=== PATIENT | male | born 1950 | race Caucasian/White ===

== ENCOUNTER 2018-06-18 20:30 | Inpatient (IN) ==
[2018-06-18] MEDS ORDERED: FUROSEMIDE 40 MG/4 ML VIAL IV STA (21:24)
[2018-06-19] MEDS ORDERED: ALBUTEROL 2.5 MG/3 ML NEB RESP TX PRN (00:24)
[2018-06-19] MEDS ORDERED: ACETAMINOPHEN 325 MG TABLET PO PRN (00:24)
[2018-06-19] MEDS ORDERED: hydrOXYzine HCL 25 MG TABLET PO PRN (00:24)
[2018-06-19] MEDS ORDERED: DOCUSATE SODIUM 100 MG CAPSULE PO PRN (00:24)
[2018-06-19] MEDS ORDERED: ONDANSETRON 4 MG/2 ML VIAL IV PRN (00:24)
[2018-06-19] MEDS ORDERED: NON-FORMULARY MEDICATION (Albuterol Sulfate [Ventolin Hfa] 2 PUFF) INH PRN (00:24)
[2018-06-19] MEDS: cefTRIAXone 1,000 MG in SYRINGE 1 EACH IV SCH ×2 (00:55→01:28)
[2018-06-19] MEDS ORDERED: AZITHROMYCIN INJ 500 MG in SODIUM CHLORIDE 0.9% 250 ML IV SCH (01:00)
[2018-06-19] MEDS: ALBUTEROL/IPRATROPIUM 3 ML NEB RESP TX SCH ×4 (01:57→19:43)
[2018-06-19 04:35] LABS: Hematocrit 36.8 VOL% (42.0-52.0); Hemoglobin 11.8 GM/DL (14.0-18.0); Immature Granulocytes % 0.7 %; Immature Granulocytes Absolute 0.04 #; Lymphocytes # 0.3 10*3/uL (1.4-4.0); Mean Corpuscular HGB Conc 32.1 GM/DL (32-36); Mean Corpuscular Hemoglobin 32 PG (27-34); Mean Corpuscular Volume 100.5 FL (87-102); Mean Platelet Volume 12.8 FL (9.6-12.0); Monocytes # 0.3 10*3/uL (0.11-0.8); Neutrophils # 4.7 10*3/uL (1.4-7.4); Neutrophils % 88.3 % (38.7-73.9); Red Blood Count 3.66 MC/CUMM (3.8-5.5); White Blood Count 5.4 T/CUMM (4-12)
[2018-06-19 04:39] LABS: Platelet Count 39 T/CUMM (130-400)
[2018-06-19 05:04] LABS: Calcium 8.7 MG/DL (8.5-10.1); Osmolality,Calculated 274.4 MOS/KG (273-304); Risk Ratio 1.31; Thyroid Stimulating Hormone 0.145 uIU/ml (0.358-3.74); VLDL CHOLESTEROL 9.4 MG/DL
[2018-06-19 05:12] LABS: Hypochromasia 1+; Tear Drop Cells Slight
[2018-06-19 05:13] LABS: Microcytosis Slight; Platelet Estimate Decreased
[2018-06-19] MEDS ORDERED: IPRATROPIUM 500 MCG/2.5 ML NEB RESP TX SCH (07:00)
[2018-06-19 08:19] LABS: Albumin 3.1 G/DL (3.4-5.0); Bilirubin,Total 0.6 MG/DL (0.2-1.0); Calcium 8.9 MG/DL (8.5-10.1); Potassium 3.9 MMOL/L (3.5-5.1); Total Protein 7.2 G/DL (6.4-8.3)
[2018-06-19] MEDS: FUROSEMIDE 20 MG/2 ML VIAL IV SCH ×2 (08:52→16:16)
[2018-06-19] MEDS: FLUTICASONE/SALMETEROL 250-50 DISKUS 14 DOSE INH SCH ×2 (08:53→20:50)
[2018-06-19] MEDS: MONTELUKAST 10 MG TABLET PO SCH (08:53)
[2018-06-19] MEDS: FOLIC ACID 1 MG TABLET PO SCH (08:53)
[2018-06-19] MEDS: predniSONE 20 MG TABLET PO SCH (08:53)
[2018-06-19] MEDS ORDERED: ENOXAPARIN 40 MG/0.4 ML SYRINGE SUBCUT SCH (09:00)
[2018-06-19 14:46] LABS: Apearance,Urine CLEAR (Clear); Bilirubin,Urine Negative (Negative); Blood, Urine Negative (Negative); Glucose,Urine (UA) Negative (Negative); Ketones,Urine Negative (Negative); Mucus,Urine Occasional /LPF (Occasional); Nitrite,Urine Negative (Negative); Protein,Urine Negative; RBC,Urine 1 /HPF (0-4); Urine Color Straw (Yellow); Urine Specific Gravity 1.006 (1.001-1.035); Urine Urobilinogen < 2.0 EU/DL (0.2-1.0)
[2018-06-20] MEDS: ALBUTEROL/IPRATROPIUM 3 ML NEB RESP TX SCH ×4 (01:15→20:13)
[2018-06-20 06:33] LABS: Basophils % 0.2 % (0.0-0.8); Eosinophils % 0.3 % (0.00-10.9); Immature Granulocytes % 0.4 %; Immature Granulocytes Absolute 0.04 #; Lymphocytes # 1.2 10*3/uL (1.4-4.0); Lymphocytes % 11.2 % (21.2-54.2); Mean Corpuscular HGB Conc 32.4 GM/DL (32-36); Mean Corpuscular Hemoglobin 32 PG (27-34); Mean Corpuscular Volume 98.9 FL (87-102); Mean Platelet Volume 12.8 FL (9.6-12.0); Monocytes # 0.7 10*3/uL (0.11-0.8); Monocytes % 6.4 % (1.7-12.7); Neutrophils % 81.5 % (38.7-73.9); Platelet Count 40 T/CUMM (130-400); Red Blood Count 3.74 MC/CUMM (3.8-5.5); Red Cell Distribution Width 13.7 % (9.3-17.3)
[2018-06-20 06:44] LABS: PT Patient Result 10.1 SECS; Partial Thromboplastin Time 26.3 SECS (0-40)
[2018-06-20 06:56] LABS: Hypochromasia 1+; Platelet Estimate Decreased
[2018-06-20 06:57] LABS: Microcytosis Slight
[2018-06-20 07:13] LABS: Free T4 (Free Thyroxine) 0.94 NG/DL (0.76-1.46); T4 (Thyroxine) 6.3 UG/DL (4.7-13.3)
[2018-06-20 07:19] LABS: Folate 16.7 NG/ML (5.4-24.0)
[2018-06-20 07:21] LABS: Blood Urea Nitrogen 17 MG/DL (7-18); Glucose 88 MG/DL (74-106); Osmolality,Calculated 273.8 MOS/KG (273-304); Potassium 3.9 MMOL/L (3.5-5.1); Sodium 137 MMOL/L (136-145)
[2018-06-20] MEDS: MONTELUKAST 10 MG TABLET PO SCH (08:50)
[2018-06-20] MEDS: AZITHROMYCIN 250 MG TABLET PO SCH (08:50)
[2018-06-20] MEDS: FOLIC ACID 1 MG TABLET PO SCH (08:50)
[2018-06-20] MEDS: predniSONE 20 MG TABLET PO SCH (08:50)
[2018-06-20] MEDS: FUROSEMIDE 20 MG/2 ML VIAL IV SCH ×2 (08:51→16:33)
[2018-06-20] MEDS: cefTRIAXone 1,000 MG in SYRINGE 1 EACH IV SCH (08:53)
[2018-06-20] MEDS: FLUTICASONE/SALMETEROL 250-50 DISKUS 14 DOSE INH SCH ×2 (08:56→20:32)
[2018-06-20] MEDS: THIAMINE 100 MG TABLET PO SCH (10:29)
[2018-06-20] MEDS: MULTIVITAMIN (CENTRUM) TABLET PO SCH (10:29)
[2018-06-21] MEDS: ALBUTEROL/IPRATROPIUM 3 ML NEB RESP TX SCH ×4 (00:25→19:16)
[2018-06-21 06:23] LABS: Basophils % 0.1 % (0.0-0.8); Eosinophils # 0.1 10*3/uL (0.0-0.87); Eosinophils % 0.4 % (0.00-10.9); Hematocrit 36.7 VOL% (42.0-52.0); Hemoglobin 11.9 GM/DL (14.0-18.0); Immature Granulocytes % 0.6 %; Immature Granulocytes Absolute 0.08 #; Lymphocytes # 1.2 10*3/uL (1.4-4.0); Lymphocytes % 9.3 % (21.2-54.2); Mean Corpuscular HGB Conc 32.4 GM/DL (32-36); Mean Corpuscular Hemoglobin 32 PG (27-34); Mean Corpuscular Volume 98.9 FL (87-102); Mean Platelet Volume 13.4 FL (9.6-12.0); Monocytes # 0.9 10*3/uL (0.11-0.8); Monocytes % 7.3 % (1.7-12.7); Neutrophils # 10.5 10*3/uL (1.4-7.4); Neutrophils % 82.3 % (38.7-73.9); Platelet Count 45 T/CUMM (130-400); Red Blood Count 3.71 MC/CUMM (3.8-5.5); Red Cell Distribution Width 13.6 % (9.3-17.3); White Blood Count 12.7 T/CUMM (4-12)
[2018-06-21 06:39] LABS: Calcium 8.6 MG/DL (8.5-10.1); Potassium 3.5 MMOL/L (3.5-5.1)
[2018-06-21 06:43] LABS: Band Neutrophils 5 % (0-10); Eosinophils 1 % (0-10); Lymphocytes 12 % (20-55); Platelet Estimate Decreased; Segmented Neutrophils 77 % (50-85); Total Cells Counted 100
[2018-06-21 06:44] LABS: Anisocytosis 1+
[2018-06-21] MEDS: FUROSEMIDE 20 MG/2 ML VIAL IV SCH ×2 (08:25→16:13)
[2018-06-21] MEDS: MULTIVITAMIN (CENTRUM) TABLET PO SCH (08:55)
[2018-06-21] MEDS: FOLIC ACID 1 MG TABLET PO SCH (08:55)
[2018-06-21] MEDS: AZITHROMYCIN 250 MG TABLET PO SCH (08:55)
[2018-06-21] MEDS: MONTELUKAST 10 MG TABLET PO SCH (08:55)
[2018-06-21] MEDS: THIAMINE 100 MG TABLET PO SCH (08:55)
[2018-06-21] MEDS: predniSONE 20 MG TABLET PO SCH (08:55)
[2018-06-21] MEDS: cefTRIAXone 1,000 MG in SYRINGE 1 EACH IV SCH (09:05)
[2018-06-21] MEDS: FLUTICASONE/SALMETEROL 250-50 DISKUS 14 DOSE INH SCH ×2 (09:21→21:12)
[2018-06-22] MEDS: ALBUTEROL/IPRATROPIUM 3 ML NEB RESP TX SCH ×3 (00:20→13:44)
[2018-06-22] MEDS: cefTRIAXone 1,000 MG in SYRINGE 1 EACH IV SCH (09:17)
[2018-06-22] MEDS: FUROSEMIDE 20 MG/2 ML VIAL IV SCH (09:17)
[2018-06-22] MEDS: predniSONE 20 MG TABLET PO SCH (09:18)
[2018-06-22] MEDS: AZITHROMYCIN 250 MG TABLET PO SCH (09:18)
[2018-06-22] MEDS: FOLIC ACID 1 MG TABLET PO SCH (09:19)
[2018-06-22] MEDS: THIAMINE 100 MG TABLET PO SCH (09:19)
[2018-06-22] MEDS: MULTIVITAMIN (CENTRUM) TABLET PO SCH (09:19)
[2018-06-22] MEDS: MONTELUKAST 10 MG TABLET PO SCH (09:19)
[2018-06-22] MEDS: FLUTICASONE/SALMETEROL 250-50 DISKUS 14 DOSE INH SCH (09:19)
[2018-06-22 12:26] VITALS: BP 117/66
== END 2018-06-22 15:36 | disposition home or self-care (01) | DRG 192 ==
LOC: EDBD → EDUNIT# → N.ED 20:30 → SUATTDRO 23:47 → N.EDINP 23:47 → N.2E 06-19 00:33
PROVIDERS: ADMIT Internal Medicine; ATTEND Internal Medicine

== ENCOUNTER 2018-09-26 14:30 | Inpatient (IN) ==
[2018-09-26] MEDS ORDERED: methylPREDNISolone SOD SUC 125 MG/2 ML VIAL IV STA (14:46)
[2018-09-26] MEDS ORDERED: AZITHROMYCIN INJ 500 MG in SODIUM CHLORIDE 0.9% 250 ML IV STA (14:46)
[2018-09-26] MEDS ORDERED: ALBUTEROL/IPRATROPIUM 3 ML NEB RESP TX STA (14:46)
[2018-09-26 15:51] LABS: Basophils % 0.2 % (0.0-0.8); Eosinophils % 0.1 % (0.00-10.9); Hemoglobin 13.8 GM/DL (14.0-18.0); Immature Granulocytes % 0.5 %; Immature Granulocytes Absolute 0.09 #; Lymphocytes # 0.6 10*3/uL (1.4-4.0); Lymphocytes % 3.6 % (21.2-54.2); Mean Corpuscular HGB Conc 32.1 GM/DL (32-36); Mean Corpuscular Hemoglobin 33 PG (27-34); Mean Corpuscular Volume 101.2 FL (87-102); Mean Platelet Volume 11.5 FL (9.6-12.0); Monocytes # 0.7 10*3/uL (0.11-0.8); Monocytes % 4.3 % (1.7-12.7); Neutrophils # 15.9 10*3/uL (1.4-7.4); Neutrophils % 91.3 % (38.7-73.9); Platelet Count 81 T/CUMM (130-400); Red Blood Count 4.25 MC/CUMM (3.8-5.5); Red Cell Distribution Width 13.4 % (9.3-17.3); White Blood Count 17.4 T/CUMM (4-12)
[2018-09-26 16:01] LABS: INR 0.9; PT Patient Result 9.4 SECS; Partial Thromboplastin Time 27.5 SECS (0-40)
[2018-09-26 16:17] LABS: Ammonia 13 UMOL/L (11-32)
[2018-09-26 16:23] LABS: Alanine Aminotransferase 24 U/L (16-61); Albumin 3.3 G/DL (3.4-5.0); Alkaline Phosphatase 101 U/L (45-117); Aspartate Amino Transferase 21 U/L (0-37); Blood Urea Nitrogen 12 MG/DL (7-18); Calcium 8.5 MG/DL (8.5-10.1); Glucose 79 MG/DL (74-106); Sodium 136 MMOL/L (136-145); Total Protein 7.5 G/DL (6.4-8.3); Troponin I < 0.015 NG/ML (0.00-0.045)
[2018-09-26] MEDS ORDERED: ALBUTEROL NEB SOLN 5 MG/ML 20 ML/BOTTLE CONT NEB STA (16:31)
[2018-09-26] MEDS ORDERED: LEVOFLOXACIN INJ 750 MG in PREMIX 1 EACH IV STA (16:33)
[2018-09-26 18:05] LABS: ABG Base Excess 11.9 MMOL/L (-2.5-2.5); ABG Oxygen Saturation 92.6 % (95-100); ABG PCO2 62.3 MM HG (35-48); ABG PH 7.414 (7.35-7.45); ABG PO2 65.1 MM HG (80-95); ABG TCO2 40.9 MMOL/L (23-27)
[2018-09-26 18:07] LABS: Band Neutrophils 15 % (0-10); Eosinophils 1 % (0-10); Lymphocytes 5 % (20-55); Segmented Neutrophils 75 % (50-85); Total Cells Counted 100
[2018-09-26 18:08] LABS: Platelet Estimate Decreased; Polychromasia Slight
[2018-09-26 18:09] LABS: Hypochromasia Slight; Stomatocytes Few
[2018-09-26] MEDS ORDERED: ALBUTEROL 2.5 MG/3 ML NEB RESP TX PRN (18:31)
[2018-09-26] MEDS ORDERED: ONDANSETRON 4 MG/2 ML VIAL IV PRN (18:31)
[2018-09-26] MEDS ORDERED: ACETAMINOPHEN 325 MG TABLET PO PRN (18:31)
[2018-09-26] MEDS ORDERED: FUROSEMIDE 40 MG/4 ML VIAL IV STA (18:31)
[2018-09-26] MEDS: IPRATROPIUM 500 MCG/2.5 ML NEB RESP TX SCH (19:39)
[2018-09-26] MEDS: ALBUTEROL/IPRATROPIUM 3 ML NEB RESP TX SCH (19:40)
[2018-09-26 20:39] LABS: Thyroid Stimulating Hormone 0.189 uIU/ml (0.358-3.74); Troponin I < 0.015 NG/ML (0.00-0.045)
[2018-09-26] MEDS: ALBUTEROL 0.4 MG/ML 30 ML/BOTTLE PO SCH (21:46)
[2018-09-26] MEDS: FLUTICASONE/SALMETEROL 250-50 DISKUS 14 DOSE INH SCH (21:46)
[2018-09-26] MEDS: LORazepam 2 MG/1 ML VIAL IV PRN (22:13)
[2018-09-27] MEDS: ALBUTEROL/IPRATROPIUM 3 ML NEB RESP TX SCH ×4 (00:39→20:00)
[2018-09-27] MEDS: guaiFENesin/DM ER 600-30 MG TABLET PO PRN (01:19)
[2018-09-27 06:05] LABS: Basophils % 0.1 % (0.0-0.8); Hematocrit 33.9 VOL% (42.0-52.0); Hemoglobin 11.4 GM/DL (14.0-18.0); Immature Granulocytes % 0.9 %; Immature Granulocytes Absolute 0.09 #; Lymphocytes # 0.4 10*3/uL (1.4-4.0); Lymphocytes % 4.4 % (21.2-54.2); Mean Corpuscular HGB Conc 33.6 GM/DL (32-36); Mean Corpuscular Hemoglobin 33 PG (27-34); Mean Corpuscular Volume 98.5 FL (87-102); Mean Platelet Volume 11.9 FL (9.6-12.0); Monocytes # 0.3 10*3/uL (0.11-0.8); Monocytes % 2.5 % (1.7-12.7); Neutrophils # 9.3 10*3/uL (1.4-7.4); Neutrophils % 92.1 % (38.7-73.9); Platelet Count 64 T/CUMM (130-400); Red Blood Count 3.44 MC/CUMM (3.8-5.5); Red Cell Distribution Width 13.1 % (9.3-17.3); White Blood Count 10.1 T/CUMM (4-12)
[2018-09-27 06:24] LABS: Alanine Aminotransferase 18 U/L (16-61); Albumin 2.8 G/DL (3.4-5.0); Alkaline Phosphatase 88 U/L (45-117); Aspartate Amino Transferase 13 U/L (0-37); Blood Urea Nitrogen 17 MG/DL (7-18); Calcium 8.3 MG/DL (8.5-10.1); Cholesterol 144 MG/DL (50-200); Glucose 118 MG/DL (74-106); HDL Cholesterol 118 MG/DL (40-60); Osmolality,Calculated 272.1 MOS/KG (273-304); Potassium 3.8 MMOL/L (3.5-5.1); Risk Ratio 1.22; Sodium 135 MMOL/L (136-145); Total Protein 6.1 G/DL (6.4-8.3); Triglycerides 38 MG/DL (2-150); Troponin I < 0.015 NG/ML (0.00-0.045); VLDL CHOLESTEROL 7.6 MG/DL
[2018-09-27] MEDS ORDERED: ENOXAPARIN 40 MG/0.4 ML SYRINGE SUBCUT SCH (09:00)
[2018-09-27 09:01] LABS: Band Neutrophils 3 % (0-10); Lymphocytes 4 % (20-55); Platelet Estimate Decreased; Polychromasia Few; Segmented Neutrophils 93 % (50-85); Total Cells Counted 100
[2018-09-27] MEDS: PANTOPRAZOLE 40 MG TABLET PO SCH (09:41)
[2018-09-27] MEDS: FOLIC ACID 1 MG TABLET PO SCH (09:41)
[2018-09-27] MEDS: MONTELUKAST 10 MG TABLET PO SCH (09:41)
[2018-09-27] MEDS: MULTIVITAMIN (CENTRUM) TABLET PO SCH (09:42)
[2018-09-27] MEDS ORDERED: ENOXAPARIN 40 MG/0.4 ML SYRINGE ONE (09:46)
[2018-09-27] MEDS: ALBUTEROL 0.4 MG/ML 30 ML/BOTTLE PO SCH ×3 (09:48→21:19)
[2018-09-27] MEDS: FLUTICASONE/SALMETEROL 250-50 DISKUS 14 DOSE INH SCH ×2 (09:48→21:19)
[2018-09-27 12:38] LABS: Apearance,Urine CLEAR (Clear); Bilirubin,Urine Negative (Negative); Blood, Urine Small mg/dL (Negative); Glucose,Urine (UA) >=500 mg/dL (Negative); Ketones,Urine Negative (Negative); Nitrite,Urine Negative (Negative); Protein,Urine Negative; RBC,Urine 1 /HPF (0-4); Urine Color Colorless (Yellow); Urine Specific Gravity 1.003 (1.001-1.035); Urine Urobilinogen < 2.0 EU/DL (0.2-1.0)
[2018-09-27 13:11] LABS: Barbiturates Screen,Urine Negative (Negative); Benzodiazepines Screen,Urine Negative (Negative); Cannabinoid Screen,Urine Negative (Negative); Opiate Screen,Urine Negative (Negative); Phencyclidine Screen,Urine Negative (Negative)
[2018-09-27] MEDS: LEVOFLOXACIN INJ 500 MG in PREMIX 1 EACH IV SCH (18:06)
[2018-09-27] MEDS: IPRATROPIUM 500 MCG/2.5 ML NEB RESP TX SCH (18:21)
[2018-09-27] MEDS: LORazepam 2 MG/1 ML VIAL IV PRN (21:30)
[2018-09-27] MEDS ORDERED: LORazepam 2 MG/1 ML VIAL IV ONE (22:30)
[2018-09-28] MEDS: ALBUTEROL/IPRATROPIUM 3 ML NEB RESP TX SCH ×4 (01:30→19:56)
[2018-09-28 06:01] LABS: Eosinophils % 0.4 % (0.00-10.9); Hematocrit 33.7 VOL% (42.0-52.0); Immature Granulocytes % 0.8 %; Immature Granulocytes Absolute 0.06 #; Lymphocytes # 1.2 10*3/uL (1.4-4.0); Lymphocytes % 14.7 % (21.2-54.2); Mean Corpuscular HGB Conc 32.6 GM/DL (32-36); Mean Corpuscular Hemoglobin 32 PG (27-34); Mean Corpuscular Volume 98.5 FL (87-102); Mean Platelet Volume 11.8 FL (9.6-12.0); Monocytes # 0.6 10*3/uL (0.11-0.8); Monocytes % 7.3 % (1.7-12.7); Neutrophils # 6.1 10*3/uL (1.4-7.4); Neutrophils % 76.8 % (38.7-73.9); Red Blood Count 3.42 MC/CUMM (3.8-5.5); Red Cell Distribution Width 13.3 % (9.3-17.3); White Blood Count 7.9 T/CUMM (4-12)
[2018-09-28 06:05] LABS: Platelet Count 68 T/CUMM (130-400)
[2018-09-28 06:46] LABS: Calcium 8.2 MG/DL (8.5-10.1); Osmolality,Calculated 269.8 MOS/KG (273-304); Potassium 3.3 MMOL/L (3.5-5.1)
[2018-09-28] MEDS: PANTOPRAZOLE 40 MG TABLET PO SCH (08:58)
[2018-09-28] MEDS: FOLIC ACID 1 MG TABLET PO SCH (08:58)
[2018-09-28] MEDS: ALBUTEROL 0.4 MG/ML 30 ML/BOTTLE PO SCH ×3 (08:58→22:10)
[2018-09-28] MEDS: FLUTICASONE/SALMETEROL 250-50 DISKUS 14 DOSE INH SCH ×2 (08:58→22:10)
[2018-09-28] MEDS: MULTIVITAMIN (CENTRUM) TABLET PO SCH (08:59)
[2018-09-28] MEDS: guaiFENesin/DM ER 600-30 MG TABLET PO PRN (08:59)
[2018-09-28] MEDS: MONTELUKAST 10 MG TABLET PO SCH (08:59)
[2018-09-28] MEDS: LORazepam 2 MG/1 ML VIAL IV PRN ×4 (09:00→22:11)
[2018-09-28 12:03] LABS: Macrocytosis Slight; Spherocytes Few
[2018-09-28 12:04] LABS: Platelet Estimate Decreased
[2018-09-28] MEDS: LEVOFLOXACIN INJ 500 MG in PREMIX 1 EACH IV SCH (18:10)
[2018-09-28] MEDS ORDERED: MAGNESIUM SULF RIDER 2 GM in PREMIX 1 EACH IV PRN (19:20)
[2018-09-28] MEDS ORDERED: MAGNESIUM SULF RIDER 4 GM in PREMIX 1 EACH IV PRN (19:20)
[2018-09-28] MEDS: POTASSIUM CHLORIDE 20 MEQ TABLET PO PRN ×2 (22:10→23:59)
[2018-09-29] MEDS: ALBUTEROL/IPRATROPIUM 3 ML NEB RESP TX SCH ×4 (01:22→20:13)
[2018-09-29] MEDS: POTASSIUM CHLORIDE 20 MEQ TABLET PO PRN (02:53)
[2018-09-29 05:25] LABS: Basophils % 0.1 % (0.0-0.8); Eosinophils # 0.1 10*3/uL (0.0-0.87); Eosinophils % 0.9 % (0.00-10.9); Hematocrit 34.1 VOL% (42.0-52.0); Hemoglobin 11.2 GM/DL (14.0-18.0); Immature Granulocytes % 0.9 %; Immature Granulocytes Absolute 0.06 #; Lymphocytes % 14.8 % (21.2-54.2); Mean Corpuscular HGB Conc 32.8 GM/DL (32-36); Mean Corpuscular Hemoglobin 33 PG (27-34); Mean Platelet Volume 12.1 FL (9.6-12.0); Monocytes # 0.6 10*3/uL (0.11-0.8); Monocytes % 8.7 % (1.7-12.7); Neutrophils % 74.6 % (38.7-73.9); Platelet Count 63 T/CUMM (130-400); Red Blood Count 3.41 MC/CUMM (3.8-5.5); Red Cell Distribution Width 13.6 % (9.3-17.3); White Blood Count 6.8 T/CUMM (4-12)
[2018-09-29 06:06] LABS: Hypochromasia 1+; Macrocytosis Slight; Platelet Estimate Decreased
[2018-09-29 06:11] LABS: Calcium 8.5 MG/DL (8.5-10.1); Osmolality,Calculated 275.7 MOS/KG (273-304); Potassium 4.2 MMOL/L (3.5-5.1)
[2018-09-29] MEDS: FOLIC ACID 1 MG TABLET PO SCH (10:15)
[2018-09-29] MEDS: MULTIVITAMIN (CENTRUM) TABLET PO SCH (10:15)
[2018-09-29] MEDS: ALBUTEROL 0.4 MG/ML 30 ML/BOTTLE PO SCH ×3 (10:15→21:54)
[2018-09-29] MEDS: PANTOPRAZOLE 40 MG TABLET PO SCH (10:15)
[2018-09-29] MEDS: MONTELUKAST 10 MG TABLET PO SCH (10:15)
[2018-09-29] MEDS: FLUTICASONE/SALMETEROL 250-50 DISKUS 14 DOSE INH SCH ×2 (10:16→21:54)
[2018-09-29] MEDS: THEOPHYLLINE ER 300 MG TABLET PO SCH ×2 (13:24→16:59)
[2018-09-29] MEDS: LEVOFLOXACIN INJ 500 MG in PREMIX 1 EACH IV SCH (17:06)
[2018-09-30] MEDS: ALBUTEROL/IPRATROPIUM 3 ML NEB RESP TX SCH ×4 (02:06→19:30)
[2018-09-30 05:26] LABS: Basophils % 0.4 % (0.0-0.8); Eosinophils # 0.1 10*3/uL (0.0-0.87); Eosinophils % 1.4 % (0.00-10.9); Hematocrit 33.8 VOL% (42.0-52.0); Immature Granulocytes % 1.4 %; Immature Granulocytes Absolute 0.08 #; Lymphocytes % 17.7 % (21.2-54.2); Mean Corpuscular HGB Conc 32.5 GM/DL (32-36); Mean Corpuscular Hemoglobin 33 PG (27-34); Mean Corpuscular Volume 100.3 FL (87-102); Mean Platelet Volume 11.9 FL (9.6-12.0); Monocytes # 0.5 10*3/uL (0.11-0.8); Monocytes % 9.2 % (1.7-12.7); Neutrophils % 69.9 % (38.7-73.9); Platelet Count 73 T/CUMM (130-400); Red Blood Count 3.37 MC/CUMM (3.8-5.5); Red Cell Distribution Width 13.5 % (9.3-17.3); White Blood Count 5.7 T/CUMM (4-12)
[2018-09-30 05:42] LABS: Calcium 8.3 MG/DL (8.5-10.1); Potassium 3.7 MMOL/L (3.5-5.1)
[2018-09-30 05:48] LABS: Hypochromasia 1+; Platelet Estimate Decreased
[2018-09-30 05:49] LABS: Macrocytosis Slight
[2018-09-30] MEDS: THEOPHYLLINE ER 300 MG TABLET PO SCH ×2 (09:15→17:51)
[2018-09-30] MEDS: FOLIC ACID 1 MG TABLET PO SCH (09:16)
[2018-09-30] MEDS: MONTELUKAST 10 MG TABLET PO SCH (09:16)
[2018-09-30] MEDS: MULTIVITAMIN (CENTRUM) TABLET PO SCH (09:16)
[2018-09-30] MEDS: PANTOPRAZOLE 40 MG TABLET PO SCH (09:16)
[2018-09-30] MEDS: ALBUTEROL 0.4 MG/ML 30 ML/BOTTLE PO SCH ×3 (09:18→21:26)
[2018-09-30] MEDS: FLUTICASONE/SALMETEROL 250-50 DISKUS 14 DOSE INH SCH ×2 (09:18→21:25)
[2018-09-30] MEDS: DORNASE ALFA 2.5 MG/2.5 ML VIAL RESP TX SCH ×2 (14:06→19:43)
[2018-09-30] MEDS: NYSTATIN 500,000 UNIT/5 ML UDCUP SWISH/SWAL SCH ×3 (14:44→21:25)
[2018-09-30] MEDS: LEVOFLOXACIN INJ 500 MG in PREMIX 1 EACH IV SCH (17:50)
[2018-10-01] MEDS: ALBUTEROL/IPRATROPIUM 3 ML NEB RESP TX SCH ×4 (02:00→19:17)
[2018-10-01 05:39] LABS: Basophils % 0.3 % (0.0-0.8); Eosinophils # 0.1 10*3/uL (0.0-0.87); Eosinophils % 1.7 % (0.00-10.9); Hematocrit 34.4 VOL% (42.0-52.0); Hemoglobin 11.1 GM/DL (14.0-18.0); Immature Granulocytes % 2.2 %; Immature Granulocytes Absolute 0.13 #; Lymphocytes % 16.6 % (21.2-54.2); Mean Corpuscular HGB Conc 32.3 GM/DL (32-36); Mean Corpuscular Hemoglobin 32 PG (27-34); Mean Platelet Volume 12.3 FL (9.6-12.0); Monocytes # 0.6 10*3/uL (0.11-0.8); Monocytes % 9.6 % (1.7-12.7); Neutrophils # 4.2 10*3/uL (1.4-7.4); Neutrophils % 69.6 % (38.7-73.9); Platelet Count 75 T/CUMM (130-400); Red Blood Count 3.44 MC/CUMM (3.8-5.5); Red Cell Distribution Width 13.7 % (9.3-17.3)
[2018-10-01 06:08] LABS: Atypical Lymphocytes Few; Eosinophils 4 % (0-10); Lymphocytes 17 % (20-55); Metamyelocytes 1 %; Segmented Neutrophils 73 % (50-85); Total Cells Counted 100
[2018-10-01 06:09] LABS: Calcium 8.6 MG/DL (8.5-10.1); Hypochromasia 1+; Macrocytosis Slight; Osmolality,Calculated 272.8 MOS/KG (273-304); Platelet Estimate Decreased; Potassium 3.9 MMOL/L (3.5-5.1)
[2018-10-01] MEDS: DORNASE ALFA 2.5 MG/2.5 ML VIAL RESP TX SCH ×2 (07:30→19:18)
[2018-10-01] MEDS: MULTIVITAMIN (CENTRUM) TABLET PO SCH (09:41)
[2018-10-01] MEDS: MONTELUKAST 10 MG TABLET PO SCH (09:42)
[2018-10-01] MEDS: PANTOPRAZOLE 40 MG TABLET PO SCH (09:42)
[2018-10-01] MEDS: THEOPHYLLINE ER 300 MG TABLET PO SCH ×2 (09:42→17:31)
[2018-10-01] MEDS: FOLIC ACID 1 MG TABLET PO SCH (09:42)
[2018-10-01] MEDS: FLUTICASONE/SALMETEROL 250-50 DISKUS 14 DOSE INH SCH ×2 (09:43→20:43)
[2018-10-01] MEDS: NYSTATIN 500,000 UNIT/5 ML UDCUP SWISH/SWAL SCH ×4 (09:43→20:43)
[2018-10-01] MEDS: ALBUTEROL 0.4 MG/ML 30 ML/BOTTLE PO SCH ×3 (09:44→22:20)
[2018-10-01] MEDS: LEVOFLOXACIN INJ 500 MG in PREMIX 1 EACH IV SCH (17:31)
[2018-10-02] MEDS: ALBUTEROL/IPRATROPIUM 3 ML NEB RESP TX SCH ×3 (00:13→13:42)
[2018-10-02] MEDS: DORNASE ALFA 2.5 MG/2.5 ML VIAL RESP TX SCH (07:59)
[2018-10-02] MEDS: MONTELUKAST 10 MG TABLET PO SCH (09:33)
[2018-10-02] MEDS: MULTIVITAMIN (CENTRUM) TABLET PO SCH (09:33)
[2018-10-02] MEDS: THEOPHYLLINE ER 300 MG TABLET PO SCH (09:33)
[2018-10-02] MEDS: PANTOPRAZOLE 40 MG TABLET PO SCH (09:33)
[2018-10-02] MEDS: NYSTATIN 500,000 UNIT/5 ML UDCUP SWISH/SWAL SCH (09:33)
[2018-10-02] MEDS: FOLIC ACID 1 MG TABLET PO SCH (09:33)
[2018-10-02] MEDS: FLUTICASONE/SALMETEROL 250-50 DISKUS 14 DOSE INH SCH (09:35)
[2018-10-02] MEDS: ALBUTEROL 0.4 MG/ML 30 ML/BOTTLE PO SCH (09:38)
[2018-10-02] MEDS ORDERED: THEOPHYLLINE ER 300 MG TABLET PO SCH (10:49)
[2018-10-02] MEDS: LORazepam 2 MG/1 ML VIAL IV PRN (12:19)
[2018-10-02] MEDS ORDERED: PROMETHAZINE 25 MG/1 ML VIAL IM PRN (12:22)
[2018-10-02 16:04] VITALS: BP 126/94
[2018-10-03] MEDS: ALBUTEROL 0.4 MG/ML 30 ML/BOTTLE PO SCH (02:18)
[2018-10-03] MEDS: NYSTATIN 500,000 UNIT/5 ML UDCUP SWISH/SWAL SCH (02:18)
== END 2018-10-02 17:20 | disposition home or self-care (01) | DRG 190 ==
LOC: N.ED 14:30 → SUATTDRO 17:45 → N.EDINP 17:45 → N.5E 18:30
PROVIDERS: ADMIT Internal Medicine; ATTEND Internal Medicine Cardiovascular Disease